=== PATIENT | male | born 2000 | race Caucasian/White ===

== ENCOUNTER 2021-06-28 01:44 | Emergency (ER) | payer BC ==
[2021-06-28] MEDS ORDERED: Morphine 4 MG/ML VIAL ONE (03:12)
[2021-06-28] MEDS ORDERED: Ondansetron PF 4 MG/2 ML Vial ONE (03:12)
[2021-06-28 03:25] LABS: #Eosinphils 0.4 10x3/uL (0.0-0.5); #Monocytes 0.9 10x3/uL (0.0-1.1); #Neutrophils 13.2 10x3/uL (1.5-8.4); %Basophils 0.2 % (0.0-2.0); %Eosinophils 2.2 % (0.0-6.0); %Lymphocytes 13.8 % (18.0-47.0); %Monocytes 5.1 % (0.0-10.0); %Neutrophils 78.4 % (40.0-75.0); Hemoglobin 16.7 g/dL (13.5-17.5); Mean Corpuscular HGB CONC 33.5 g/dL (32.0-36.0); Mean Corpuscular Hemoglobin 27.7 pg (27.0-33.0); Mean Corpuscular Volume 82.8 fl (81.2-95.1); Mean Platelet Volume 9.7 fl (7.4-10.4); Platelet Count 351 10x3/uL (150-450); RBC Distribution Width 12.5 % (11.5-14.5); Red Blood Cell (RBC) Count 6.03 10x6/uL (4.32-5.72); White Blood Cell (WBC) Count 16.8 10x3/uL (3.5-10.5)
[2021-06-28 03:45] LABS: ALT (SGPT) 12 U/L (8-55); AST (SGOT) 12 U/L (5-34); Albumin 4.6 g/dL (3.5-5.0); Alkaline Phosphatase 85 U/L (50-130); Anion Gap 16 mmol/L (10-20); BUN (Urea Nitrogen) 12 mg/dL (8.9-20.6); Calc. Creatinine Clearance 0 mL/min (70-130); Calcium 9.1 mg/dL (7.8-10.44); Carbon Dioxide 18 mmol/L (22-29); Chloride 109 mmol/L (98-107); Globulin 2.7 g/dL (2.4-3.5); Glucose 121 mg/dL (70-105); Lipase 10 U/L (8-78); Potassium 3.9 mmol/L (3.5-5.1); Protein, Total 7.3 g/dL (6.0-8.3); Sodium 139 mmol/L (136-145)
== END 2021-06-28 05:30 | disposition home or self-care (01) ==
LOC: CSHERS 01:44
DX: R11.2 Nausea with vomiting, unspecified (principal); R10.816 Epigastric abdominal tenderness
CPT/HCPCS: 74177; 80053; 83690; 85025; 96374; 96375; J2270; J2405